=== PATIENT | female | born 1945 | race Caucasian/White ===

== ENCOUNTER → 2017-02-15 | Outpatient (CLI) | payer OTHER, MEDICAID | LOC: FIMAGING 08:08 | PROVIDERS: ATTEND Internal Medicine | DX: Z12.31 Encounter for screening mammogram for malignant neoplasm of breast (principal) | CPT/HCPCS: G0202 ==

== ENCOUNTER 2018-01-26 16:44 | Emergency (ER) | payer OTHER, MEDICAID ==
--- NOTE | 2018-01-26 16:53 | EDPHY ---
H & P Time Seen by Provider: 01/26/18 16:53 HPI/ROS: HPI CHIEF COMPLAINT: Left foot pain. HISTORY OF PRESENT ILLNESS: Patient is a very pleasant 72-year-old female, she presents emergency room with ecchymosis to the left foot specifically over the 2nd and 3rd toes. She is unsure exactly how she injured her left foot. She has been moving recently. She is unsure if she slipped and ran her foot into something or dropped a box on it. She does not have any significant pain but due to the ecchymosis she decided come the emergency room for evaluation. Denies any other areas of injury. Past Medical History: Thyroid disease, hypertension Past Surgical History: Denies significant surgical history Social History: Lives in [place], just moved here from [place]. Family History: Noncontributory ROS REVIEW OF SYSTEMS: A comprehensive 10 point review of systems is otherwise negative aside from elements mentioned in the history of present illness. Exam Constitutional triage nursing summary reviewed, vital signs reviewed, awake/ alert. Eyes normal conjunctivae and sclera, EOMI, PERRLA. HENT normal inspection, atraumatic, moist mucus membranes, no epistaxis, neck supple/ no meningismus, no raccoon eyes. Respiratory clear to auscultation bilaterally, normal breath sounds, no respiratory distress, no wheezing. Cardiovascular rate normal, regular rhythm, no murmur, no edema, distal pulses normal. Gastrointestinal soft, non-tender, no rebound, no guarding, normal bowel sounds, no distension, no pulsatile mass. Genitourinary no CVA tenderness. Musculoskeletal left lower extremity; good distal pulse, good cap refill, ecchymosis noted to the 2nd and 3rd and 4th digits on the left foot. No significant swelling. Good distal pulse. Good cap refill. No crepitus. no midline vertebral tenderness, full range of motion, no calf swelling, no tenderness of extremities, no meningismus, good pulses, neurovascularly intact. Skin pink, warm, & dry, no rash, skin atraumatic. Neurologic awake, alert and oriented x 3, AAOx3, moves all 4 extremities equally, motor intact, sensory intact, CN II-XII intact, normal cerebellar, normal vision, normal speech. Psychiatric normal mood/affect. Heme/Lymph/Immune no lymphadenopathy. Differential Diagnosis: Includes but is not limited to in a particular order toe contusion, soft tissue injury, toe fractures, foot fracture Medical Decision Making: Plan for this patient x-ray left foot Re-evaluation: X-ray reviewed left foot. No visible fracture. Unable to visualize the full 3rd digit on the ft. Due to severe flexion. I did go reexamine her she does not have significant tenderness over this 3rd digit. There is no visible fracture seen on the 2nd digit or foot. I do recommend she ice it, elevates it, and rest. She should follow up with Podiatry. She understands return emergency room if there is any worsening symptoms pain questions or concerns. She is comfortable this plan. Source: Patient - Personal History Tetanus Vaccine Date: 2008 - Medical/Surgical History Hx Asthma: No Hx Chronic Respiratory Disease: Yes Hx Diabetes: No Hx Cardiac Disease: No Hx Renal Disease: No Hx Cirrhosis: No Hx Alcoholism: No Hx HIV/AIDS: No Hx Splenectomy or Spleen Trauma: No Other PMH: rad,arthritis, osteopenia, mr, sleep apnea,anxiety,graves disease , high chol,htn,psoriasis. DVT, DJD, - Social History Smoking Status: Never smoked Constitutional: Initial Vital Signs Temperature (C) 36.6 C 01/26/18 16:58 Heart Rate 98 01/26/18 16:58 Respiratory Rate 16 01/26/18 16:58 Blood Pressure 143/70 H 01/26/18 16:58 O2 Sat (%) 92 01/26/18 16:58 O2 Delivery Mode Room Air Allergies/Adverse Reactions: penicillin V potassium [From Pen-Vee K] Allergy (Verified 01/26/18 16:57) OATS Allergy (Uncoded 01/26/18 16:57) STRAWBERRIES Allergy (Uncoded 01/26/18 16:57) Home Medications: Medication Instructions Recorded Amlodipine Besylate 02/09/15 Omeprazole 02/09/15 Synthroid 02/09/15 Aspirin 81mg (OTC) 12/24/15 Flovent 110 MCG Hfa MDI (RX) 12/24/15 Ocuvite Adult 50 Plus Softgel 01/26/18 Medical Decision Making - Diagnostics Imaging Results: Imaging Impressions Foot X-Ray 01/26/18 17:11 Impression: Suboptimal evaluation of the third toe which is severely flexed. Negative second toe. Departure - Departure Disposition: Home, Routine, Self-Care Condition: Good Instructions: Contusion in Adults (ED), Foot Contusion (ED) Additional Instructions: 1. Recommend you ice it. 2. Keep it elevated. 3. Return emergency room if there is any worsening pain questions or concerns. Referrals: Isaura Francois MD [Primary Care Provider] - As per Instructions
[2018-01-26 17:06] VITALS: BP 143/70
== END 2018-01-26 18:10 | disposition home or self-care (01) ==
LOC: CED 16:44
DX: S90.32XA Contusion of left foot, initial encounter (principal); I10 Essential (primary) hypertension; Z79.82 Long term (current) use of aspirin; W20.8XXA Other cause of strike by thrown, projected or falling object, initial encounter
CPT/HCPCS: 73630-PO

== ENCOUNTER → 2018-02-28 | Outpatient (CLI) | payer OTHER, MEDICAID | LOC: CIMAGING 15:49 | PROVIDERS: ATTEND Internal Medicine | DX: I82.432 Acute embolism and thrombosis of left popliteal vein (principal) | CPT/HCPCS: 93971-PO ==

== ENCOUNTER → 2018-03-07 | Outpatient (CLI) | payer OTHER, MEDICAID | LOC: CIMAGING 10:45 | PROVIDERS: ATTEND Internal Medicine | DX: Z12.31 Encounter for screening mammogram for malignant neoplasm of breast (principal); Z80.3 Family history of malignant neoplasm of breast ==

== ENCOUNTER → 2018-03-08 | Outpatient (CLI) | payer OTHER, MEDICAID | LOC: CIMAGING 14:41 | PROVIDERS: ATTEND Internal Medicine | DX: I82.432 Acute embolism and thrombosis of left popliteal vein (principal) | CPT/HCPCS: 93971-PO ==

== ENCOUNTER → 2018-03-18 | Outpatient (CLI) | payer OTHER, MEDICAID | LOC: CIMAGING 12:51 | PROVIDERS: ATTEND Internal Medicine | DX: R92.8 Other abnormal and inconclusive findings on diagnostic imaging of breast (principal) | CPT/HCPCS: 76641-PO ==

== ENCOUNTER 2018-06-03 14:26 | Emergency (ER) | payer OTHER, MEDICAID ==
--- NOTE | 2018-06-03 15:18 | EDPHY ---
H & P Time Seen by Provider: 06/03/18 15:02 HPI/ROS: HPI Mechanical fall. 72-year-old female by private vehicle with her care provider. This patient was getting out of a taxi cab on her way to lunch when she tripped and fell. She struck the left lateral brow ridge. She complains of pain to her left lateral anterior rib area. There was no loss of consciousness. She denies any neck pain. She is not on anticoagulation or antiplatelet medications. No other complaints. ROS: Constitutional: No fever, no chills. No weakness. Eyes: No discharge. No changes in vision. ENT: No sore throat. No nasal congestion or rhinorrhea. Respiratory: No cough. No shortness of breath. As above. Cardiac: No chest pain, no palpitations. Gastrointestinal: No abdominal pain, no vomiting, no diarrhea. Genitourinary: No hematuria. No dysuria or increased frequency with urination. Musculoskeletal: No back pain. No neck pain. No myalgias or arthralgias. Skin: No rashes. Abrasion to left lateral brow ridge. Neurological: No headache. No focal weakness or altered sensation. Past medical history: Arthritis, osteopenia, hypertension, sleep apnea, anxiety , Graves disease, hyperlipidemia, psoriasis, DVT, DJD. Social history: No alcohol. Nonsmoker. She is here with a care provider. Physical Exam: General Appearance: Alert, no distress. This patient is responding to questions appropriately and in full sentences. This patient appears well- hydrated and well-nourished. Head: Normocephalic atraumatic except for a contusion about the size of a quarter with a superficial abrasion over it over the left lateral aspect of the brow ridge. No bony step-off or deformity noted on palpation of this area. Face: Facial bones are stable on palpation. Eyes: Pupils equal and round and reactive to light, no pallor or injection. No lid erythema or edema. ENT, Mouth: Mucous membranes moist. Dentition is intact. No malocclusion of the jaw. No tongue lacerations or abrasions. Pharynx is clear. The bilateral nasal canals are clear. No septal hematoma. Respiratory: There are no retractions, lungs are clear to auscultation with good air movement bilaterally. Chest wall is stable to AP and lateral palpation. She does have tenderness on palpation at the anterior axillary line left-sided lower rib area. No ecchymosis, bony step-off or deformity noted on palpation of this area. Cardiovascular: Regular rate and rhythm. No murmur. Gastrointestinal: Abdomen is soft and nontender, no masses, bowel sounds normal. Neurological: Motor sensory function is intact. Cranial nerves are normal. Cerebellar function intact. Skin: Warm and dry, no rashes. No lacerations, abrasions or contusions. Musculoskeletal: Neck is supple and nontender. The trachea is midline. No midline cervical, thoracic, lumbar or sacral tenderness on palpation. No flank tenderness on palpation. Extremities are symmetrical, full range of motion. All joints in the bilateral upper and bilateral lower extremities range without pain or impingement. No tenderness on palpation of the long bones in the bilateral upper and bilateral lower extremities. Psychiatric: No agitation. No depression. Database: EKG: Imaging: Left-sided rib series x-ray with PA chest: No evidence of displaced rib fractures. Old rib fractures are seen. No pneumothorax or other acute pathology. Interpreted by me. Procedures: Emergency department course: Triage vital signs reviewed. She is moderately hypertensive. Vital signs otherwise normal. She was given 600 mg of ibuprofen. Her presentation is not consistent with a significant head injury. I am concerned about possible anterior left-sided rib fractures. 4:00 p.m., patient re-evaluated. Results of x-rays discussed with the patient and her care provider. Repeat neurologic Assessment is nonfocal. She has no complaints. She feels comfortable going home at this time. Follow-up and return to emergency department precautions reviewed. All of her questions were answered. She was discharged in good condition with her care provider. Differential Diagnosis: The differential diagnosis on this patient includes but is not limited to mechanical fall, facial contusion, rib fracture versus chest wall contusion. Pneumothorax, traumatic brain injury, facial fracture, cervical spine injury unlikely. This represents a partial list of diagnoses considered. These considerations are based on history, physical exam, past history, reassessment and diagnostic testing. Smoking Status: Never smoked Constitutional: Initial Vital Signs Temperature (C) 36.6 C 06/03/18 14:32 Heart Rate 96 06/03/18 14:32 Respiratory Rate 16 06/03/18 14:32 Blood Pressure 169/82 H 06/03/18 14:32 O2 Sat (%) 94 06/03/18 14:32 O2 Delivery Mode Room Air Allergies/Adverse Reactions: penicillin V potassium [From Pen-Vee K] Allergy (Verified 01/26/18 16:57) OATS Allergy (Uncoded 01/26/18 16:57) STRAWBERRIES Allergy (Uncoded 01/26/18 16:57) Home Medications: Medication Instructions Recorded Amlodipine Besylate 02/09/15 Omeprazole 02/09/15 Synthroid 02/09/15 Aspirin 81mg (OTC) 12/24/15 Flovent 110 MCG Hfa MDI (RX) 12/24/15 Ocuvite Adult 50 Plus Softgel 01/26/18 Medical Decision Making - Diagnostics Imaging Results: Imaging Impressions Ribs w/Chest X-Ray 06/03/18 15:11 Impression: No displaced rib fracture identified. - Data Points Medications Given: Discontinued Medications Acetaminophen (Tylenol) 650 mg PO EDNOW ONE Stop: 06/03/18 15:45 Last Admin: 06/03/18 15:46 Dose: 650 mg Ibuprofen (Motrin) 600 mg PO EDNOW ONE Stop: 06/03/18 15:20 Last Admin: 06/03/18 15:45 Dose: Not Given Departure - Departure Disposition: Home, Routine, Self-Care Clinical Impression: Fall from ground level, Facial contusion, Chest wall contusion Condition: Good Instructions: Head Injury (ED) Additional Instructions: Read and follow provided instructions. Follow-up with your primary care physician in 1-2 days for re-evaluation. Take your medication as prescribed. Ibuprofen dosin mg every 8 hours with meals for the next 3 days only. Take only as needed for pain. Return to the emergency department for worsening symptoms, worsening pain, difficulty breathing, worsening headache, nausea and vomiting, confusion or other serious concerns. Referrals: Julissa Bush MD [Primary Care Provider] - As per Instructions
[2018-06-03] MEDS: IBUPROFEN 600 MG TAB PO ONE (15:45)
[2018-06-03] MEDS: ACETAMINOPHEN 325 MG TAB PO ONE (15:46)
[2018-06-03 16:39] VITALS: BP 161/86
== END 2018-06-03 16:16 | disposition home or self-care (01) ==
LOC: CED 14:26
DX: S00.83XA Contusion of other part of head, initial encounter (principal); S20.20XA Contusion of thorax, unspecified, initial encounter; V48.4XXA Person boarding or alighting a car injured in noncollision transport accident, initial encounter
CPT/HCPCS: 71101-PO